=== PATIENT | female | born 1995 | race Caucasian/White ===

== ENCOUNTER 2019-06-12 10:30 | Inpatient (IN) | payer OTHER ==
[~2019-06-12 10:30] MED LIST: CITRIC ACID/SODIUM CITRATE 30 ML UNIT-DOSE CUP PO ONE; ELECTROLYTE-148 SOLN 500 ML IV ONE
[2019-06-12] MEDS ORDERED: ELECTROLYTE-148 SOLN 1,000 ML IV SCH (11:00)
[2019-06-12 11:08] LABS: BASO % 0.5 % (0-2.0); EOS % 0.6 % (0-4.5); HEMATOCRIT 37.4 % (32.4-45.2); HEMOGLOBIN 12.6 GM/dL (10.7-15.3); LYMPH % 19.2 % (8-40); MCH 28.9 pg (25.7-33.7); MCHC 33.8 g/dl (32.0-36.0); MEAN CELL VOLUME 85.5 fl (80-96); MEAN PLT VOLUME 9.1 fl (7.5-11.1); MONO % 7.3 % (3.8-10.2); NEUT % 72.4 % (42.8-82.8); PLATELET COUNT 110 K/MM3 (134-434); RBC 4.38 M/mm3 (3.60-5.2); RDW 13.8 % (11.6-15.6); WHITE BLOOD COUNT 8.9 K/mm3 (4.0-10.0)
[2019-06-12 11:21] VITALS: BMI 33.6
[2019-06-12 11:25] LABS: INR 0.98 (0.83-1.09); PROTHROMBIN TIME (PATIENT) 11.6 SEC (9.7-13.0)
[2019-06-12 11:28] LABS: ACTIVATED PTT 30.8 SECONDS (25.2-36.5)
[2019-06-12 11:37] LABS: BLOOD UREA NITROGEN 7.3 mg/dL (7-18); CALCIUM 8.8 mg/dL (8.5-10.1); CREATININE 0.4 mg/dL (0.55-1.3); POTASSIUM 3.6 mmol/L (3.5-5.1)
[2019-06-12] MEDS ORDERED: morphine SULFATE/PF 0.5 MG/ML (2cc Syringe - QUVA) ONE (13:55)
[2019-06-12] MEDS ORDERED: PHENYLEPHRINE HCL 10 MG/1 ML SINGLE DOSE VIAL ONE (13:56)
[2019-06-12] MEDS ORDERED: morphine SULFATE/PF 0.5 MG/ML (2cc Syringe - QUVA) EP ONE (14:10)
[2019-06-12] MEDS ORDERED: KETOROLAC TROMETHAMINE 30 MG/1 ML VIAL ONE (14:19)
[2019-06-12] MEDS ORDERED: OXYTOCIN 10 UNITS/ML VIAL ONE (14:19)
[2019-06-12] MEDS ORDERED: oxyCODONE HCL 5 MG TABLET PO PRN (14:56)
[2019-06-12] MEDS ORDERED: METHYLERGONOVINE MALEATE 0.2 MG/1 ML AMP IM PRN (14:56)
[2019-06-12] MEDS ORDERED: ACETAMINOPHEN 1000 MG/100 ML VIAL (NON FORMULARY) IVPB ONE (14:59)
--- NOTE | 2019-06-12 15:10 | OP ---
Operative Note - Note: Operative Date: 06/12/19 Pre-Operative Diagnosis: full term Operation: primary section Post-Operative Diagnosis: Same as Pre-op Surgeon: Latrell Shaver Varnish Dipper: Alyssa De Leon Anesthesiologist/ARTIFICIAL STONE SETTER: Shaka Garcia Anesthesia: Spinal Operative Report Dictated: Yes
[2019-06-12] MEDS ORDERED: HYDROmorphone HCl 2 MG/ML VIAL IVPUSH PRN (15:12)
--- NOTE | 2019-06-12 15:12 | SURG ---
Surgery Special Warfare Operator Note Special Warfare Operator: Alyssa De Leon PA-C Date of Service: 06/12/19 Diagnosis: full term Procedure: primary section I was present for the entirety of the operative procedure. For further detail, please refer to operative report. Visit type - Case Type Case Type: Scheduled - Emergency Emergency Visit: No - New patient This patient is new to me today: Yes Date on this admission: 06/12/19
--- NOTE | 2019-06-12 15:22 | PN ---
Progress Note (short form) - Note Progress Note: Patient is at term. Dropping platelets. Preeclampsia? Macrosomia. Elective, urgent primary c/section. Boy 9' 3". 9 and 9. No complications.
[2019-06-12] MEDS ORDERED: ACETAMINOPHEN 1000 MG/100 ML VIAL (NON FORMULARY) IVPB PRN (15:50)
[2019-06-12] MEDS ORDERED: KETOROLAC TROMETHAMINE 15 MG/ML VIAL IVPB PRN (15:51)
[2019-06-12] MEDS ORDERED: OXYTOCIN 20 UNITS in 0.9% NS 20 UNIT/1,000 ML INFUS.BAG IV SCH (16:00)
[2019-06-12] MEDS: METHYLERGONOVINE MALEATE 0.2 MG/1 ML AMP IM PRN (18:47)
[2019-06-12] MEDS ORDERED: CARBOPROST TROMETHAMINE 250 MCG/ML AMPUL IM ONE (19:45)
--- NOTE | 2019-06-12 19:47 | OP ---
DATE OF OPERATION: 06/12/2019 PREOPERATIVE DIAGNOSES: 1. Intrauterine at term. 2. Macrosomia. 3. Progressive thrombocytopenia, possible impending preeclampsia. POSTOPERATIVE DIAGNOSES: 1. Intrauterine at term. 2. Macrosomia. 3. Progressive thrombocytopenia, possible impending preeclampsia. PROCEDURE: Primary low-segment section. SURGEON: Marko Bethea MD INGOT CASTER: LETA Aguilar ANESTHESIOLOGIST: Huber Garcia MD ANESTHESIA: Spinal. PROCEDURE AND FINDINGS: Under excellent spinal block in dorsal supine position with left lateral tilt, patient was prepped and draped for the section. Abdomen was entered through Pfannenstiel incision, which was carried through the layers transversely. Fascia was incised transversely and rectus muscles were dissected off the fascia and in the midline. Peritoneum was entered vertically. Term uterus with normal adnexa was noted. Head was palpated above the symphysis pubis, unengaged. Bladder flap was incised and peeled off lower uterine segment. Hysterotomy was placed transversely and extended with bandage scissors. Amniotic fluid was clear. Male infant was delivered through the hysterotomy, cried and breathed spontaneously. Cord was divided and baby was handed over to the team. Apgars were 9 and 9. Weight was reported to be 9 pounds 3 ounces. Placenta was removed manually and uterine cavity was cleaned. Cervix was dilated with sponge stick. Hysterotomy was closed with continuous running interlocking Biosyn 0 suture, single layer. Hemostasis was excellent. Uterus was placed anatomically in the abdomen and pelvic lavage was carried out. Hemostasis was carefully checked and was excellent. Sponge, needle, and instrument count was correct. Abdomen was closed in layers, with peritoneum closed with continuous running Biosyn 4-0 suture. Fascia was closed with continuous running Vicryl 1 suture. Subcutaneous tissue was approximated with interrupted Biosyn 2-0 sutures and skin was approximated in subcuticular fashion with V-Loc 4-0 running suture. Steri-Strips were placed on the incision and sterile dressing was applied, held with a binder. Urine was clear in the Gilman bag. Estimated blood loss was 600 mL. Patient withstood the procedure very well and was transferred to PACU comfortable and stable. MARKO BETHEA MD [id number]
[2019-06-12] MEDS ORDERED: CEFAZOLIN 1 GM/D5W 1 GM/50 ML BAG IVPB SCH (21:00)
--- NOTE | 2019-06-12 21:04 | PN ---
Progress Note (short form) - Note Progress Note: Asked by Dr. Shaver to assess patient's vaginal bleeding Reports by RN passed 2 large clots today, s/p methergine x 1 and hemabate x 1 Improvement in bleeding noted by nursing staff Exam revealed firm fundus, ~ 1 cm below umbilicus Vaginal exam - cervix 1 cm, clot noted in uterus, difficult to express given patient's intolerance of exam Fundal pressures with mild amount of blood expressed (~50 cc) patient also reports itching, Dr. Saravia (Anesthesia) at bedside, recommend 50 mg benadryl, 5 mg zolpidem Q HS Will continue to monitor vaginal bleeding
[2019-06-12] MEDS ORDERED: ZOLPIDEM TARTRATE 5 MG TABLET PO ONE (21:05)
[2019-06-12] MEDS: ONDANSETRON 4 MG/2 ML VIAL IVPUSH PRN (21:11)
[2019-06-13] MEDS: METHYLERGONOVINE MALEATE 0.2 MG/1 ML AMP IM PRN (02:17)
[2019-06-13] MEDS: ONDANSETRON 4 MG/2 ML VIAL IVPUSH PRN (05:23)
--- NOTE | 2019-06-13 07:59 | PN ---
Progress Note (short form) - Note Progress Note: POD 1, s/p primary section Pt seen and examined. Notably upset due to pruritus. Reports she believes its from the Epidural and requesting a better solution than benedryl. No n/v, has only had sips of water so far. No flatus, Has not been oob. Gilman in place. Denies cp/sob. Vital Signs Temp 97.7 F 06/13/19 06:00 Pulse 97 H 06/13/19 06:00 Resp 20 06/13/19 07:00 BP 112/59 L 06/13/19 06:00 Pulse Ox 100 06/12/19 16:00 Intake & Output 06/12/19 06/12/19 06/13/19 11:59 23:59 11:59 Intake Total 2575 2350 Output Total 900 1800 Balance 1675 550 Weight 196 lb Intake: IV 2575 2200 NORMAL SALINE+20 UNITS 1175 2200 OXYTOCIN - 20 unit In 1, 000 ml @ 125 mls/hr IV ASDIR NAV Rx#:[id number] Plasma-Lyte 148 - 1,000 500 ml @ 125 mls/hr IV ASDIR NAV Rx#:[id number] Plasma-Lyte 148 - 500 ml 500 @ 1000 mls/hr IV ASDIR ONE Rx#:[id number] ns+30units pitocin 400 IVPB 150 Output: Urine 900 1800 Gilman 900 1800 Other: Voiding Method Indwelling Catheter Height 5 ft 4 in Body Mass Index (BMI) 33.6 Weight 9 lb 3 oz Length 20.5 in CBC, BMP 06/12/19 10:50 06/12/19 10:50 Gen: awake, alert, nad Resp: unlabored on RA Abdo: Binder in place, abdomen soft, nd, +ttp at incision site. Inicision intact with steri-strips in place, no erythema or drainage. A/P: 23 y/o F w/ no significant PMHx now POD1 s/p primary section. Afebrile, vss +pruritus believed to be secondary to epidural (per pt no h/o allergies) -Message out to anesthesia regarding pruritus -Pain meds as ordered -Gilman out this AM, TOV -OOB ambulating -bowel regimen as order -Advance diet as tolerated -Monitor VS per protocol d/w attending Dr Shaver
[2019-06-13] MEDS: SIMETHICONE 80 MG TAB.CHEW (FP) PO PRN ×4 (08:27→21:55)
[2019-06-13] MEDS: IBUPROFEN 600 MG TABLET (FP) PO PRN ×4 (08:27→21:55)
[2019-06-13] MEDS ORDERED: PROMETHAZINE HCL 25 MG/1 ML VIAL IM ONE (08:44)
--- NOTE | 2019-06-13 08:44 | PN ---
Post Progress Note - Subjective Subjective: Problems with PP bleeding last night. Responded to Methergine and Hemabate. Checked by Dr. Walton. Severe pruritus. Allergy to anesthesia meds? Somewhat better this AM PE: Abd. soft, sl. distended. BS pos, hypoactive.. Uterus well contracted. Breasts soft. Wants to nurse. No CVA, extremities tenderness. I/P: Recovering. Expecting CBC this AM. Still has pruritus. Phenergan 25 mg. IM given. Anesthesia f/u requested. OOB. Nursing to start MONALISA. Pt. requests circumcision. Fully discussed. Consent signed. Type of Delivery: Primary C/S Vital Signs: Vital Signs Temperature 97.7 F 06/13/19 06:00 Pulse Rate 97 H 06/13/19 06:00 Respiratory Rate 20 06/13/19 07:00 Blood Pressure 112/59 L 06/13/19 06:00 O2 Sat by Pulse Oximetry (%) 100 06/12/19 16:00 - Labs Labs: CBC WBC 8.9 K/mm3 (4.0-10.0) 06/12/19 10:50 RBC 4.38 M/mm3 (3.60-5.2) 06/12/19 10:50 Hgb 12.6 GM/dL (10.7-15.3) 06/12/19 10:50 Hct 37.4 % (32.4-45.2) 06/12/19 10:50 MCV 85.5 fl (80-96) 06/12/19 10:50 MCH 28.9 pg (25.7-33.7) 06/12/19 10:50 MCHC 33.8 g/dl (32.0-36.0) 06/12/19 10:50 RDW 13.8 % (11.6-15.6) 06/12/19 10:50 Plt Count 110 K/MM3 (134-434) L 06/12/19 10:50 MPV 9.1 fl (7.5-11.1) 06/12/19 10:50 Absolute Neuts (auto) 6.4 K/mm3 (1.5-8.0) 06/12/19 10:50 Neutrophils % 72.4 % (42.8-82.8) 06/12/19 10:50 Lymphocytes % 19.2 % (8-40) 06/12/19 10:50 Monocytes % 7.3 % (3.8-10.2) 06/12/19 10:50 Eosinophils % 0.6 % (0-4.5) D 06/12/19 10:50 Basophils % 0.5 % (0-2.0) D 06/12/19 10:50 Nucleated RBC % 0 % (0-0) 06/12/19 10:50
[2019-06-13 09:10] LABS: BASO % 0.1 % (0-2.0); EOS % 0.5 % (0-4.5); HEMOGLOBIN 10.9 GM/dL (10.7-15.3); MCH 29.1 pg (25.7-33.7); MCHC 33.9 g/dl (32.0-36.0); MONO % 5.6 % (3.8-10.2); NEUT % 84.8 % (42.8-82.8); PLATELET COUNT 99 K/MM3 (134-434); RBC 3.73 M/mm3 (3.60-5.2); RDW 13.8 % (11.6-15.6); WHITE BLOOD COUNT 10.7 K/mm3 (4.0-10.0)
[2019-06-13] MEDS ORDERED: PATIENT'S OWN MEDICATION (NON-FORMULARY) (Prenatal Vits96/Iron Fum/Folic [Prenatal Tablet] PO SCH (10:00)
[2019-06-13] MEDS ORDERED: PATIENT'S OWN MEDICATION (NON-FORMULARY) (Calcium Carbonate [Calcium] 600 MG) PO SCH (10:00)
[2019-06-13] MEDS ORDERED: PATIENT'S OWN MEDICATION (NON-FORMULARY) (Ferrous Sulfate [Feosol] 325 MG) PO SCH (10:00)
[2019-06-13] MEDS: FERROUS SO4 325 MG TABLET (FP) PO SCH (10:50)
--- NOTE | 2019-06-13 13:21 | PN ---
Progress Note (short form) - Note Progress Note: Anesthesia postop note 23 y/o F s/p spinal anesthesia duramorph for section. POD#1, vss, aaox3, pain well controlled, severe pruritus overnight, feeling better. Sensory motor intact distally.
[2019-06-13] MEDS ORDERED: FLU VACC QS2019-20(6MOS UP)/PF 60 MCG/0.5 ML SYRINGE IM ONE (14:00)
[2019-06-13] MEDS ORDERED: FLU VACCINE QUAD 60 MCG/0.5 ML (MDV 19-20) IM ONE (14:00)
[2019-06-13] MEDS ORDERED: BISACODYL 10 MG SUPP.RECT RC PRN (14:59)
[2019-06-13] MEDS: PRENATAL VITAMINS W/ FOLIC ACID TABLET (FP) PO SCH (15:34)
[2019-06-13] MEDS: CALCIUM (OYSTER SHELL) 500 MG TABLET (FP) PO SCH (15:35)
[2019-06-13] MEDS: CHOLECALCIFEROL (VIT D3) 1,000 UNIT (25 MCG) TABLET PO SCH (15:35)
[2019-06-14] MEDS: oxyCODONE HCL 5 MG TABLET PO PRN ×3 (07:52→19:39)
--- NOTE | 2019-06-14 07:52 | PN ---
Progress Note (short form) - Note Progress Note: Surgery POD #2 s/p primary section Patient comfortable with no new complaints, itching and her pain is controlled. She has been OOB, voiding and tolerating her diet. She denies any CP, SOB, N/V, fever or chills. Vital Signs Temp 98.2 F 06/13/19 21:41 Pulse 95 H 06/13/19 21:41 Resp 20 06/13/19 21:41 BP 108/60 06/13/19 21:41 Pulse Ox 100 06/12/19 16:00 Intake & Output 06/13/19 06/13/19 06/14/19 11:59 23:59 11:59 Intake Total 2350 Output Total 2800 2800 Balance -450 -2800 Intake: IV 2200 NORMAL SALINE+20 UNITS 2200 OXYTOCIN - 20 unit In 1, 000 ml @ 125 mls/hr IV ASDIR NAV Rx#:[id number] IVPB 150 Output: Urine 2800 2800 Gilman 2800 Void 2800 Other: Voiding Method Toilet CBC, BMP 06/13/19 08:05 06/12/19 10:50 Gen: awake, alert, nad Resp: unlabored on RA Abdo: abdomen soft, nd, slightly distended with diffuse ttp throughout appropriate to status, Inicision c/d/i with steri-strips in place, no erythema or drainage. B/L LE compartments soft, supple and non-tender with +DP pulses Problem List - Problems (1) Status post primary low transverse section Assessment/Plan: POD #2 doing well. A/P: 23 y/o F w/ no significant PMHx now POD2 s/p primary section. -Pain meds as ordered -OOB ambulating -bowel regimen as order -monitor VS per protocol -abd binder PRN comfort -d/c planning for home tomrrow d/w attending Dr Shaver Code(s): Z98.891 - HISTORY OF UTERINE SCAR FROM PREVIOUS SURGERY
[2019-06-14] MEDS: IBUPROFEN 600 MG TABLET (FP) PO PRN ×3 (07:54→19:39)
[2019-06-14] MEDS: SIMETHICONE 80 MG TAB.CHEW (FP) PO PRN ×3 (07:54→19:39)
[2019-06-14] MEDS: PRENATAL VITAMINS W/ FOLIC ACID TABLET (FP) PO SCH (10:07)
[2019-06-14] MEDS: FERROUS SO4 325 MG TABLET (FP) PO SCH (10:07)
[2019-06-14] MEDS: CHOLECALCIFEROL (VIT D3) 1,000 UNIT (25 MCG) TABLET PO SCH (10:08)
[2019-06-14] MEDS: CALCIUM (OYSTER SHELL) 500 MG TABLET (FP) PO SCH (10:08)
[2019-06-15] MEDS: SIMETHICONE 80 MG TAB.CHEW (FP) PO PRN ×4 (01:16→22:19)
[2019-06-15] MEDS: oxyCODONE HCL 5 MG TABLET PO PRN ×2 (01:16→08:49)
[2019-06-15] MEDS: IBUPROFEN 600 MG TABLET (FP) PO PRN ×4 (01:17→22:19)
[2019-06-15] MEDS: CALCIUM (OYSTER SHELL) 500 MG TABLET (FP) PO SCH (10:12)
[2019-06-15] MEDS: FERROUS SO4 325 MG TABLET (FP) PO SCH (10:12)
[2019-06-15] MEDS: CHOLECALCIFEROL (VIT D3) 1,000 UNIT (25 MCG) TABLET PO SCH (10:12)
[2019-06-15] MEDS: PRENATAL VITAMINS W/ FOLIC ACID TABLET (FP) PO SCH (10:12)
--- NOTE | 2019-06-15 12:32 | PN ---
Post Progress Note - Subjective Subjective: Doing very well on POD#3. Disharge tonight or tomorrow AM. BM OK. Type of Delivery: Primary C/S Vital Signs: Vital Signs Temperature 98.0 F 06/15/19 10:00 Pulse Rate 100 H 06/15/19 10:00 Respiratory Rate 18 06/15/19 10:00 Blood Pressure 93/61 06/15/19 10:00 O2 Sat by Pulse Oximetry (%) 100 06/12/19 16:00 Breast Exam: Yes: Engorged Uterus: Yes: Fundus Firm Incision: Yes: Sutures intact Abdomen/GI: Yes: Abdomen soft (Mild distention. ) Lochia: Yes: Rubra, Serosa Lochia, amount: Moderate Extremities: Yes: Calves non-tender Activity: Ambulating - Labs Labs: CBC WBC 10.7 K/mm3 (4.0-10.0) H 06/13/19 08:05 RBC 3.73 M/mm3 (3.60-5.2) 06/13/19 08:05 Hgb 10.9 GM/dL (10.7-15.3) 06/13/19 08:05 Hct 32.0 % (32.4-45.2) L 06/13/19 08:05 MCV 86.0 fl (80-96) 06/13/19 08:05 MCH 29.1 pg (25.7-33.7) 06/13/19 08:05 MCHC 33.9 g/dl (32.0-36.0) 06/13/19 08:05 RDW 13.8 % (11.6-15.6) 06/13/19 08:05 Plt Count 99 K/MM3 (134-434) L 06/13/19 08:05 MPV 9.0 fl (7.5-11.1) 06/13/19 08:05 Absolute Neuts (auto) 9.0 K/mm3 (1.5-8.0) H 06/13/19 08:05 Neutrophils % 84.8 % (42.8-82.8) H 06/13/19 08:05 Lymphocytes % 9.0 % (8-40) D 06/13/19 08:05 Monocytes % 5.6 % (3.8-10.2) 06/13/19 08:05 Eosinophils % 0.5 % (0-4.5) 06/13/19 08:05 Basophils % 0.1 % (0-2.0) 06/13/19 08:05 Nucleated RBC % 0 % (0-0) 06/13/19 08:05 Assessment/Plan Discharge tonight or tomorrow AM. Doing bery well. Nursing. Flat nipples. Discussed. Instructions given. Discharge tonight or tommorow AM All ?? answered.
[2019-06-16] MEDS: SIMETHICONE 80 MG TAB.CHEW (FP) PO PRN (07:55)
[2019-06-16] MEDS: IBUPROFEN 600 MG TABLET (FP) PO PRN (07:55)
[2019-06-16 09:21] VITALS: BP 124/70; PULSE 92; TEMP 97.9
[2019-06-16] MEDS: CHOLECALCIFEROL (VIT D3) 1,000 UNIT (25 MCG) TABLET PO SCH (10:33)
[2019-06-16] MEDS: PRENATAL VITAMINS W/ FOLIC ACID TABLET (FP) PO SCH (10:33)
[2019-06-16] MEDS: FERROUS SO4 325 MG TABLET (FP) PO SCH (10:33)
[2019-06-16] MEDS: CALCIUM (OYSTER SHELL) 500 MG TABLET (FP) PO SCH (10:33)
--- NOTE | 2019-06-17 13:18 | PATH ---
Surgical Pathology Report Patient Name: MARLON NAVA [facility]. Rec. 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 TRIVASCULAR CORD. MEMBRANES WITH NO DIAGNOSTIC ABNORMALITIES. Electronically Signed Simin Cota M.D. Gross Description The specimen is received fresh labeled placenta and is a 496gram, 21 x16 x 2.1cm. placenta with attached membranes and umbilical cord. The attached membranes are glistening, translucent, and insert marginally. The umbilical cord measures 36 cm. in length and averages 0.8 cm. in diameter. The cord inserts centrally, 6 centimeter to the nearest margin. No true knots or strictures are identified. Cut surface of the umbilical cord reveals 3 vessels. Sectioning reveals red-brown, spongy parenchyma. Focal hemorrhage in the parenchyma measuring 3.5 x 2.5 x 1.2 cm in greatest dimension identified. Director [employer] sections are submitted in three cassettes as follows: 1- membrane rolls and umbilical cord; 2-3- full thickness sections of placenta with focal hemorrhage in the #3. KWS/06/13/2019 vijay/06/13/2019
== END 2019-06-16 11:15 | disposition home or self-care (01) | DRG 540 ==
LOC: JLDR 10:30 → J3W 16:25
PROVIDERS: ADMIT Specialist; ATTEND Specialist
PROC: 10D00Z1 Extraction of Products of Conception, Low, Open Approach (ICD-10-PCS; principal; 2019-06-12)
DX: O99.12 Other diseases of the blood and blood-forming organs and certain disorders involving the immune mechanism complicating childbirth (principal); O36.63X0 Maternal care for excessive fetal growth, third trimester, not applicable or unspecified; D69.6 Thrombocytopenia, unspecified; O72.1 Other immediate postpartum hemorrhage; Z3A.38 38 weeks gestation of pregnancy; Z37.0 Single live birth
CPT/HCPCS: 36415; 80048; 85025; 85610; 85730; 86593; 86850; 86900; 86901; 88307-TC; 90686; G0008; J0131